=== PATIENT | female | born 1985 | race Caucasian/White ===

== ENCOUNTER 2017-03-11 03:32 | Inpatient (IN) | payer SELFPAY ==
[2017-03-11 00:06] VITALS: BMI 31.7
[2017-03-11] MEDS: Oxytocin 10 UNITS/ML Vial IM (04:40)
--- NOTE | 2017-03-11 04:55 | PCM.OB.VAG ---
Vaginal Delivery Maternal Presentation: Active Labor 38 3/7 wk 2 cm, posterior and with UCs. Amniotic Membrane Rupture Type: Artificial Amniotic Fluid Description: Clear Final YULISSA: 03/22/17 Gestational age: 38 Weeks and 3 Days Date of Procedure: 03/11/17 Pre-Operative Diagnosis: 38 3/7 wk Post-Operative Diagnosis: same Surgery/ Procedure Performed: Spontaneous Vaginal Delivery Type of Anesthesia: None Description of Procedure: of mace viable male over intact perineum. Loose body/nuchal cord reduced and shoulders delivered easily. Baby to bed and OP and nares bulb suctioned, then baby to maternal abdomen with spont cry. No gases sent. PP exam abrasion at posterior perinum, no repair Placenta delivered intact 3v cord, trailing membranes. Counts correct. EBL 350 cc Presentation: Vertex Placental Delivery Description: Spontaneous, Expressed Placenta Disposition: [facility] Cord Vessel Description: 3 Vessels Cord Entanglement: None Estimated Blood Loss: 350 (1 minute): 8 (5 minute): 9 Episiotomy Description: None Laceration: None - abrasion Medications given after delivery: - - IM pitocin 10 Units Complications: None
--- NOTE | 2017-03-11 05:01 | PCM.DCVAG ---
Discharge Diet: No Restrictions Discharge Activity: May Shower, May Take a Tub Bath May resume sexual activity in: 4-6 weeks Additional Activity Instructions:: Nothing in the vagina for 4-6 weeks. You may return to work/school in 6 weeks. Additional Instructions: If you experience any of the following, contact your healthcare provider. Bleeding that soaks a pad every hour for 2 hours Fever 100.4 or higher Unrelieved abdominal pain Problems urinating (including inability to urinate or burning while urinating). Visual changes Severe headache Flu-like symptoms Pain or redness in one of both of your breasts Pain, warmth, tenderness or swelling in your legs, especially the calf area Frequent nausea and vomiting Symptoms of depression or anxiety If you experience any of the following, call 911 or go to the nearest Emergency Room. Chest pain Problems breathing Seizure activity Partial or complete paralysis of a body part, slurred speech, weakness or drooping of the face, or a sudden inability to walk or hold your balance Allergies/Adverse Reactions: Allergies amoxicillin Allergy (Verified 03/11/17 00:09) Unknown Penicillins Allergy (Verified 03/11/17 00:09) Unknown Please Follow Up With: Cr Lopez MD - [phone] When: Call to make an appointment with your doctor in 6 weeks. Proposed Discharge Date: 03/13/17
--- NOTE | 2017-03-11 05:02 | DCINST_ITS ---
Discharge Diet: No Restrictions Discharge Activity: May Shower, May Take a Tub Bath May resume sexual activity in: 4-6 weeks Additional Activity Instructions:: Nothing in the vagina for 4-6 weeks. You may return to work/school in 6 weeks. Additional Instructions: If you experience any of the following, contact your healthcare provider. * Bleeding that soaks a pad every hour for 2 hours * Fever 100.4 or higher * Unrelieved abdominal pain * Problems urinating (including inability to urinate or burning while urinating) . * Visual changes * Severe headache * Flu-like symptoms * Pain or redness in one of both of your breasts * Pain, warmth, tenderness or swelling in your legs, especially the calf area * Frequent nausea and vomiting * Symptoms of depression or anxiety If you experience any of the following, call 911 or go to the nearest Emergency Room. * Chest pain * Problems breathing * Seizure activity * Partial or complete paralysis of a body part, slurred speech, weakness or drooping of the face, or a sudden inability to walk or hold your balance Allergies/Adverse Reactions: Allergies amoxicillin Allergy (Verified 03/11/17 00:09) Unknown Penicillins Allergy (Verified 03/11/17 00:09) Unknown Please Follow Up With: Cr Lopez MD - [phone] When: Call to make an appointment with your doctor in 6 weeks. Proposed Discharge Date: 03/13/17
[2017-03-11 05:49] LABS: Hematocrit 32.8 % (37-47); Hemoglobin 11.3 g/dl (12.0-15.0); Mean Corp Hgb Conc 34.5 g/gl (32-36); Mean Corpuscular Hgb 31.9 pg (27.0-32.0); Mean Corpuscular Volume 92.7 fL (81-99); Mean Platelet Vol. 11.2 fl (6.2-12.0); Platelet Count 171 K/mm3 (150-450); RBC Distribution Width CV 12.7 % (11.6-14.6); Red Blood Count 3.54 M/mm3 (4.2-5.4); White Blood Count 9.9 K/mm3 (4.4-11.0)
[2017-03-11 05:56] LABS: Scan Indicated on CBC? Y/N NO
[2017-03-11 07:01] VITALS: BP 115/65; PULSE 80; RESP 16; TEMP 36.5; O2SAT 98
[2017-03-11 07:40] VITALS: BP 112/71; PULSE 74; RESP 16; TEMP 36.8; O2SAT 96
[2017-03-11 11:00] VITALS: BP 108/65; PULSE 87; RESP 16; TEMP 36.6; O2SAT 98
[2017-03-11 11:34] VITALS: PULSE 87; O2SAT 98
--- NOTE | 2017-03-11 12:59 | PCM.PN.OB ---
Subjective: Day of Delivery. On phone and speaking PA [place]. Does not get off phone for entire visit. - Physical Exam General: Alert, Oriented x3, Cooperative, No apparent distress HEENT: Atraumatic Neck: Supple Abdomen: Soft - fundus at 2 cm inferior to umbilicus Psych/Mental Status: Normal Affect Vital Signs Temp Pulse Resp BP Pulse Ox 97.8 F 87 16 108/65 98 03/11/17 11:00 03/11/17 11:34 03/11/17 11:00 03/11/17 11:00 03/11/17 11:34 Oxygen Delivery Method Room Air Weight: 83.915 kg Body Mass Index (BMI) 31.7 Laboratory Tests Past 24 Hrs 03/11/17 03/11/17 05:05 05:05 WBC 9.9 RBC 3.54 L Hgb 11.3 L Hct 32.8 L MCV 92.7 MCH 31.9 MCHC 34.5 RDW 12.7 RDW Differential 41.0 Plt Count 171 MPV 11.2 Blood Type O POSITIVE Antibody Screen NEGATIVE Assessment/Plan Day of Delivery Stable pp. NAD and on phone. Continue care.
--- NOTE | 2017-03-11 13:25 | NURSING ---
This nurse reviewed the charting completed by TEO Saxena and it is complete.
[2017-03-11 16:30] VITALS: BP 112/70; PULSE 68; RESP 16; TEMP 36.8; O2SAT 98
[2017-03-11 19:50] VITALS: BP 107/67; PULSE 86; RESP 16; TEMP 36.8
[2017-03-12] VITALS: BP 107/70; PULSE 61; RESP 16; TEMP 36.7
[2017-03-12 05:12] LABS: Hematocrit 33.2 % (37-47); Hemoglobin 11.3 g/dl (12.0-15.0); Mean Corpuscular Hgb 31.7 pg (27.0-32.0); Mean Platelet Vol. 11.3 fl (6.2-12.0); Platelet Count 183 K/mm3 (150-450); RBC Distribution Width CV 12.9 % (11.6-14.6); RBC Distribution Width SD 41.9 fl (35.1-43.9); Red Blood Count 3.57 M/mm3 (4.2-5.4); White Blood Count 9.4 K/mm3 (4.4-11.0)
[2017-03-12 05:13] LABS: Scan Indicated on CBC? Y/N NO
[2017-03-12 08:31] VITALS: BP 109/63; PULSE 80; RESP 16; TEMP 36.8; O2SAT 98
--- NOTE | 2017-03-12 08:33 | PCM.PN.OB ---
Subjective: PPD#1 Doing well and no concerns voiced. Hoping to go home today. GBS testing was negative in ofc. Doing well with nursing. - Physical Exam General: Alert, Oriented x3, Cooperative, No apparent distress HEENT: Atraumatic Neck: Supple Psych/Mental Status: Normal Affect Vital Signs Temp Pulse Resp BP Pulse Ox 98.0 F 61 16 107/70 98 03/12/17 00:00 03/12/17 00:00 03/12/17 00:00 03/12/17 00:00 03/11/17 16:30 Oxygen Delivery Method Room Air Weight: 83.915 kg Body Mass Index (BMI) 31.7 Laboratory Tests Past 24 Hrs 03/12/17 04:30 WBC 9.4 RBC 3.57 L Hgb 11.3 L Hct 33.2 L MCV 93.0 MCH 31.7 MCHC 34.0 RDW 12.9 RDW Differential 41.9 Plt Count 183 MPV 11.3 Assessment/Plan PPD#1 Stable pp. Plans to go home today. Dischg home.
[2017-03-12 12:16] VITALS: BP 104/67; PULSE 75; RESP 17; TEMP 36.8; O2SAT 96
== END 2017-03-12 13:45 | disposition home or self-care (01) | DRG 775 ==
LOC: WPOUT 03:33
PROVIDERS: Admitting Provider Obstetrics & Gynecology; Visit Provider Obstetrics & Gynecology
DX: O71.82 Other specified trauma to perineum and vulva (principal); O99.354 Diseases of the nervous system complicating childbirth; G40.409 Other generalized epilepsy and epileptic syndromes, not intractable, without status epilepticus; Z37.0 Single live birth; Z3A.38 38 weeks gestation of pregnancy
CPT/HCPCS: 59025; 59050; 85027; 86850; 86900; 99218; G0378

== ENCOUNTER → 2018-05-08 17:21 | Outpatient (CLI) | payer SELFPAY ==
[2018-05-15 14:13] LABS: HPV Reflexed? NOT INDICATED
== END ==
PROVIDERS: Referring Provider Obstetrics & Gynecology; Visit Provider Obstetrics & Gynecology
DX: Z12.4 Encounter for screening for malignant neoplasm of cervix (principal)
CPT/HCPCS: 87624; 88175; G0145